=== PATIENT | female | born 1995 | race Caucasian/White ===

== ENCOUNTER 2016-12-08 01:43 | Observation (INO) | payer BC, OTHER ==
[~2016-12-08] VITALS: Ht 160 cm; Wt 91.0 kg
[~2016-12-08 01:43] MED LIST: OXYC1SOL5 PO; PRENCAP6 PO
[2016-12-08 01:45] VITALS: BP 138/79; PULSE 118; RESP 16; TEMP 98; O2SAT 100
[2016-12-08 02:25] LABS: AUTOMATED NEUTROPHIL # 16.9 TH/MM3 (1.8-7.7); BASOPHIL # 0.1 TH/MM3 (0-0.2); BASOPHIL % 0.3 % (0.0-2.0); EOSINOPHIL # 0.1 TH/MM3 (0-0.4); EOSINOPHIL % 0.4 % (0.0-4.0); HEMATOCRIT 37.7 % (35.0-46.0); HEMO FLAGS DIFF FINAL; LYMPH % 8.8 % (9.0-44.0); LYMPHOCYTE # 1.7 TH/MM3 (1.0-4.8); MEAN CORPUSCULAR HEMOGLOBIN 26.6 PG (27.0-34.0); MEAN CORPUSCULAR HGB CONC 33.2 % (32.0-36.0); NEUT % 85.5 % (16.0-70.0); PLATELET COUNT 347 TH/MM3 (150-450); RED BLOOD COUNT 4.71 MIL/MM3 (4.00-5.30); RED CELL DISTRIBUTION WIDTH 15.4 % (11.6-17.2); WHITE BLOOD COUNT 19.8 TH/MM3 (4.0-11.0)
[2016-12-08 02:26] LABS: BACTERIA, URINE RARE /hpf; BLOOD, URINE NEG (NEG); COMMENT (UR) CULTURE INDICATED; CULTURE IF INDICATED CULTURE INDICATED; GLUCOSE,URINE NEG (NEG); KETONE, URINE 40 mg/dL (NEG); NITRITE,URINE NEG (NEG); PH, URINE 5.5 (5.0-8.5); SQUAMOUS EPITHELIAL CELL URINE 1 /hpf (0-5); URINE COLOR YELLOW (YELLW/STRAW)
[2016-12-08] MEDS ORDERED: SODIUM CHLOR 0.9% 1000 ML INJ 1,000 ML IV SCH ×2 (02:45→07:23)
[2016-12-08] MEDS ORDERED: ONDANSETRON HCL 4 MG/2 ML VIAL IV PUSH ONE ×2 (02:45→07:57)
[2016-12-08 03:18] LABS: BICARBONATE 22.5 MEQ/L (21.0-32.0)
[2016-12-08 03:49] LABS: TOTAL BILIRUBIN ADULT 0.5 MG/DL (0.2-1.0)
[2016-12-08 04:20] LABS: INDIRECT BILIRUBIN 0.4 MG/DL (0.0-0.8)
--- NOTE | 2016-12-08 04:25 | PD ---
HPI Chief Complaint: GI Complaint Time Seen by Provider: 02:01 Travel History International Travel<30 days: No Contact w/Intl Traveler<30days: No Traveled to known affect area: No History of Present Illness HPI 21-year-old female arrives with right abdomen pain. It started about 12 hours ago. It started gradually. She has been unable to sleep because of the pain. Pain is worse with movement. The patient's last menstruation was about one month ago and she reports a positive jaab-abo-ojfdagr ear test. The patient is 2 para 1. She has nausea however denies vomiting and diarrhea. She's had decreased appetite. She's never had similar prior pain. She's had no abnormal vaginal bleeding or discharge. She reports past medical history of pseudotumor cerebri. She has no past surgical history. She takes no medications. She has no allergy. Previous lawn care specialist was Dr. Taylor. [facility] Past Medical History ADHD: No Cancer: No Cardiovascular Problems: No Developmental Delay: No Diabetes: No Diminished Hearing: No Neurologic: Yes (EXTRA FLUID ON BRAIN) Psychiatric: No Immunizations Current: Yes Migraines: No Seizures: No Thyroid Disease: No Ulcer: No Tetanus Vaccination: < 5 Years Influenza Vaccination: No ?: Unknown LMP: 3--17 Past Surgical History Surgical History: No Previous Surgery Other Surgery: No Social History Alcohol Use: No Tobacco Use: No Substance Use: No Allergies-Medications (Allergen,Severity, Reaction): Coded Allergies: No Known Allergies (Unverified , 12/08/16) Reported Meds & Prescriptions Reported Meds & Active Scripts Active No Active Prescriptions or Reported Medications Review of Systems Except as stated in HPI: all other systems reviewed are Neg General / Constitutional: No: Fever Physical Exam Narrative GENERAL: 21-year-old female well-nourished well-developed SKIN: Focused skin assessment warm/dry. HEAD: Atraumatic. Normocephalic. EYES: Pupils equal and round. No scleral icterus. No injection or drainage. ENT: No nasal bleeding or discharge. Mucous membranes pink and moist. NECK: Trachea midline. No JVD. CARDIOVASCULAR: Regular rate and rhythm. No murmur appreciated. RESPIRATORY: No accessory muscle use. Clear to auscultation. Breath sounds equal bilaterally. GASTROINTESTINAL: There is tenderness at McBurney's point. There is pain with 90 flexion at the hip on the right side. Abdomen is soft. There is no left- sided tenderness. MUSCULOSKELETAL: No obvious deformities. No clubbing. No cyanosis. No edema. NEUROLOGICAL: Awake and alert. No obvious cranial nerve deficits. Motor grossly within normal limits. Normal speech. PSYCHIATRIC: Appropriate mood and affect; insight and judgment normal. Data Data Last Documented VS Vital Signs Date Time Temp Pulse Resp B/P Pulse Ox O2 Delivery O2 Flow Rate FiO2 12/08/16 01:45 98.0 118 16 138/79 100 Vital signs reviewed Orders Urinalysis - C+S If Indicated (12/08/16 02:00) Complete Blood Count With Diff (12/08/16 02:10) Basic Metabolic Panel (Bmp) (12/08/16 02:10) Beta Hcg (Quant/Titer) (12/08/16 02:10) Type And Screen (12/08/16 02:10) Ed Urine Pregnancytest Poc (12/08/16 02:14) Urine Culture (12/08/16 02:00) Mri Abdomen W/O Contrast (12/08/16 ) Hepatic Functional Panel (12/08/16 02:39) Lipase (12/08/16 02:39) Sodium Chlor 0.9% 1000 Ml Inj (Ns 1000 M (12/08/16 02:45) Ondansetron Inj (Zofran Inj) (12/08/16 02:45) Piperacil-Tazo 3.375 Gm Premix (Zosyn 3. (12/08/16 05:15) Admit Order (Ed Use Only) (12/08/16 05:10) NPO (12/08/16 05:12) Labs Laboratory Tests Test 12/08/16 12/08/16 02:00 02:10 Urine Color YELLOW Urine Turbidity CLEAR Urine pH 5.5 Urine Specific [place] 1.019 Urine Protein NEG mg/dL Urine Glucose (UA) NEG mg/dL Urine Ketones 40 mg/dL Urine Occult Blood NEG Urine Nitrite NEG Urine Bilirubin NEG Urine Urobilinogen LESS THAN 2.0 MG/DL Urine Leukocyte Esterase LARGE Urine RBC 1 /hpf Urine WBC 15 /hpf Urine Squamous Epithelial 1 /hpf Cells Urine Bacteria RARE /hpf Microscopic Urinalysis Comment CULTURE INDICATED White Blood Count 19.8 TH/MM3 Red Blood Count 4.71 MIL/MM3 Hemoglobin 12.5 GM/DL Hematocrit 37.7 % Mean Corpuscular Volume 80.0 FL Mean Corpuscular Hemoglobin 26.6 PG Mean Corpuscular Hemoglobin 33.2 % Concent Red Cell Distribution Width 15.4 % Platelet Count 347 TH/MM3 Mean Platelet Volume 9.2 FL Neutrophils (%) (Auto) 85.5 % Lymphocytes (%) (Auto) 8.8 % Monocytes (%) (Auto) 5.0 % Eosinophils (%) (Auto) 0.4 % Basophils (%) (Auto) 0.3 % Neutrophils # (Auto) 16.9 TH/MM3 Lymphocytes # (Auto) 1.7 TH/MM3 Monocytes # (Auto) 1.0 TH/MM3 Eosinophils # (Auto) 0.1 TH/MM3 Basophils # (Auto) 0.1 TH/MM3 CBC Comment DIFF FINAL Differential Comment Sodium Level 137 MEQ/L Potassium Level 4.0 MEQ/L Chloride Level 107 MEQ/L Carbon Dioxide Level 22.5 MEQ/L Anion Gap 8 MEQ/L Blood Urea Nitrogen 7 MG/DL Creatinine 0.63 MG/DL Estimat Glomerular Filtration 119 ML/MIN Rate Random Glucose 108 MG/DL Calcium Level 8.5 MG/DL Total Bilirubin 0.5 MG/DL Direct Bilirubin 0.1 MG/DL Indirect Bilirubin 0.4 MG/DL Aspartate Amino Transf 31 U/L (AST/SGOT) Alanine Aminotransferase 14 U/L (ALT/SGPT) Alkaline Phosphatase 50 U/L Total Protein 7.9 GM/DL Albumin 4.0 GM/DL Lipase 108 U/L Human Chorionic Gonadotropin, 317 MIU/ML Quant Blood Type A POSITIVE Antibody Screen NEGATIVE MDM Medical Decision Making Medical Screen Exam Complete: Yes Emergency Medical Condition: Yes Medical Record Reviewed: Yes Differential Diagnosis Constipation, Gastritis, Acute Cholecystitis, Biliary Colic, Pancreatitis, SOTELO , Hepatitis, Bowel Obstruction, Cystitis, Mesenteric Ischemia, AAA, Appendicitis , Renal Stone/Hydronephrosis, GERD, perforated viscous Narrative Course CBC & BMP Diagram 12/08/16 02:10 LFTs normal Lipase normal Beta hCG 317 Urinalysis shows pyuria Last 24 hours Impressions Abdomen MRI 12/08/16 0000 Signed Impressions: Service Date/Time: Thursday, December 08, 2016 04:15 - CONCLUSION: Dilated fluid-filled appendix measuring 9 mm in diameter. Although no definite periappendiceal inflammation is appreciated the findings are suspicious for acute appendicitis in the appropriate clinical setting. There is trace simple free fluid in the pelvis. Stevan Vega MD Case discussed with Dr. Sandoval of obstetrics. is so early it is unlikely to have caused any anatomical change as of yet. Case discussed with Dr. Vega radiology who states the is likely too early to identify location. Case discussed with Dr. Fadumo Qureshi of Gen. surgery at approximately 505AM. Abdomen soft with tenderness to palpation at McBurney's point. No sign of peritonitis. Vital signs normal. Patient notified of findings and plan. Diagnosis Primary Impression: Appendicitis Qualified Code: K35.89 - Other acute appendicitis Additional Impression: Qualified Code: Z3A.01 - Less than 8 weeks gestation of Admitting Information Admitting Physician Requests: Admit Scripts No Active Prescriptions or Reported Meds Royce Hughes MD Dec 08, 2016 04:25
--- NOTE | 2016-12-08 05:00 | RADRPT ---
EXAM DATE/TIME: 12/08/2016 04:15 [facility] COMPARISON: No previous studies available for comparison. INDICATIONS : Appendicitis. MEDICAL HISTORY : None. SURGICAL HISTORY : None. ENCOUNTER: Initial ACUITY: 2 day PAIN SCORE: 4/10 LOCATION: Right flank TECHNIQUE: Multiplanar, multisequence magnetic resonance imaging of the abdomen was performed without contrast. FINDINGS: Images document a dilated fluid-filled appendix with diameter of 9 mm. No definite periappendiceal in flammation is identified. There is trace simple free fluid in the posterior cul-de-sac within the pel vis. There is a 2 cm corpus luteal cyst in the right ovary. No gestational sac is appreciated within the ovary. The visualized surrounding structures demonstrate no acute finding. CONCLUSION: Dilated fluid-filled appendix measuring 9 mm in diameter. Although no definite periappendiceal inflam mation is appreciated the findings are suspicious for acute appendicitis in the appropriate clinical setting. There is trace simple free fluid in the pelvis. Stevan Vega MD on December 08, 2016 at 4:56 Board Certified Radiologist. This report was verified electronically.
[2016-12-08] MEDS ORDERED: PIPERACIL-TAZO 3.375 GM PREMIX 50 ML IV ONE (05:15)
[2016-12-08] MEDS ORDERED: BUPIVACAINE/EPINEPHRINE 0.5% PF 30 ML VIAL ONE (05:25)
[2016-12-08] MEDS ORDERED: fentaNYL CITRATE 250 MCG/5 ML AMP ONE (06:01)
[2016-12-08] MEDS ORDERED: SUGAMMADEX SODIUM 200 MG/2 ML VIAL IV PUSH ONE ×2 (06:56)
--- NOTE | 2016-12-08 07:27 | HHI.PR ---
Immediate Post Op Note Procedure Date: Dec 08, 2016 Pre Op Diagnosis: (1) Appendicitis (2) Post Op Diagnosis: (1) (2) Appendicitis Surgeon: Arthur Qureshi Supervisor Phosphoric Acid(s): rodolfo regalado Procedure: lap appy Findings: acute appendicitis Complications: none Specimen(s) removed: appendix Estimated blood loss: none Anesthesia: General IVF Patient to: PACU Patient Condition: Good Arthur Qureshi MD Dec 08, 2016 07:27
[2016-12-08] MEDS ORDERED: KETOROLAC TROMETHAMINE 30 MG/ML (IVP) VIAL IVP PRN (07:30)
[2016-12-08] MEDS ORDERED: ACETAMINOPHEN/HYDROcodone 325 MG/5 MG TAB PO PRN ×2 (07:30)
[2016-12-08] MEDS ORDERED: SODIUM CHLORIDE 0.9% FLUSH 5 ML FLUSH IVF PRN (07:30)
[2016-12-08] MEDS ORDERED: MORPHINE SULFATE 8 MG/ML INJ IV PUSH PRN (07:30)
[2016-12-08] MEDS ORDERED: MORPHINE SULFATE 4 MG/ML INJ IV PUSH PRN (07:30)
[2016-12-08] MEDS ORDERED: Post-op Orders (for Pharmacy) MISC XX ONE (07:30)
[2016-12-08] MEDS ORDERED: ONDANSETRON HCL 4 MG/2 ML VIAL IV PRN (07:30)
[2016-12-08] MEDS ORDERED: diphenhydrAMINE HCL 25 MG CAP PO PRN (07:30)
[2016-12-08] MEDS ORDERED: NALOXONE HCL 0.4 MG/ML AMP IV PRN (07:30)
[2016-12-08] MEDS ORDERED: NORC5TAB PO (07:51)
[2016-12-08] MEDS ORDERED: LACTATED RINGER'S 1000 ML INJ 1,000 ML IV ONE (07:57)
[2016-12-08] MEDS ORDERED: KETOROLAC TROMETHAMINE 60 MG/2 ML (IM) VIAL IM ONE (07:57)
[2016-12-08] MEDS ORDERED: PROPOFOL 200 MG/20 ML AMP IV ONE (07:57)
--- NOTE | 2016-12-08 07:58 | MH ---
cc: CARMENZA OTT DATE OF ADMISSION: 12/08/2016 CHIEF COMPLAINT Acute appendicitis. HISTORY OF PRESENT ILLNESS Ms. Davis is a very pleasant 21-year-old female who presented to the emergency department with a 12-hour history of right lower quadrant abdominal pain. She states she developed a gradual onset of pain around 4 o'clock yesterday afternoon. It was in the mid abdominal area and then moved to the right lower quadrant. She was unable to sleep secondary to the pain and had her bring her to the emergency department. She states the pain is made worse by moving around. She denies any nausea or vomiting. She states she just took a test yesterday and she believes she is about four weeks . This is her second child as she already has a 2 year-old with her at home. The patient had some nausea but no emesis. She had no fever. She reports no diarrhea or loose bowel movements. She states she does have some loss of appetite. PAST MEDICAL HISTORY: Pseudotumor cerebri. PAST SURGICAL HISTORY: None, according to the patient. MEDICATIONS: None. ALLERGIES: None known. SOCIAL HISTORY: She does not smoke or drink. 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 REVIEW OF SYSTEMS: Please see HPI. PHYSICAL EXAMINATION: Temperature is 98, pulse is 110, blood pressure is 130/70, respiratory rate 20. GENERAL: A pleasant, young, healthy appearing white female, accompanied by her in the emergency department. HEENT: Pupils equal light, round and reactive to light. Sclerae are white. Oropharynx is clear and moist. Neck is supple. No masses. Lungs: Clear to auscultation bilaterally. Heart: S1-S2 no murmur. Abdomen: Soft, obese, tender in the right lower quadrant with some voluntary guarding and rebound. No abdominal masses. No abdominal hernias. Bowel sounds are present. Extremities: Free range of motion x4. Neurologically: Alert and orient x3. LABORATORY DATA White blood cell count is 19.8, hemoglobin 12, platelet count is 347. Electrolytes are all within normal limits. Beta hCG is 317. MRI the abdomen demonstrates a dilated fluid filled appendix in the right lower quadrant consistent with appendicitis IMPRESSION Acute appendicitis. PLAN Risks and benefits of operative intervention were discussed with the patient. We specifically discussed the risks of the surgical procedure with a 4-week intrauterine . Both her and her had a clear understanding of this. I called the operating room and requested immediate time and they obliged. The patient will be taken to the operating room right now for laparoscopic, possible open appendectomy. MD REINA Landa/MARVA /7:20 AM /7:32 AM
--- NOTE | 2016-12-08 07:58 | MP ---
cc: CARMENZA OTT PREOPERATIVE DIAGNOSIS: Acute appendicitis POSTOPERATIVE DIAGNOSIS: Acute appendicitis PROCEDURE PERFORMED: Laparoscopic appendectomy SURGEON: Carmenza Ott MD. ANESTHESIA: General endotracheal anesthesia COMPLICATIONS: None. INDICATIONS FOR PROCEDURE: Ms. Davis is a very pleasant 21-year-old female presented to the emergency department early this morning with a 12-hour history of right lower quadrant abdominal pain. By history, physical exam and MRI, she has acute appendicitis. Risks and benefits of laparoscopic possible open appendectomy was discussed with her and her including the fact that she is 4 weeks and they were agreeable to proceed. DETAILS The patient was identified, brought to the operating room, placed supine on the operating room table. After adequate general anesthesia was achieved the abdomen was prepped and draped in standard surgical fashion. Infraumbilical region was anesthetized with 0.25% Marcaine. Infraumbilical incision was made. Dissection was carried down to the subcutaneous tissue in the midline fascia. Midline fascia was then incised sharply. A finger was then placed in the peritoneal cavity without difficulty. Blunt balloon trocar was inserted and the abdomen was insufflated to 15 mmHg using CO2 gas. Next two 5 mm trocars were placed in the lower midline under direct vision. Immediately we identified a dilated and inflamed appendix with a small amount of turbid fluid in the pelvis. Turbid fluid was evacuated out with the suction irrigation device. Appendix was intact and there was no evidence of perforation. Appendix was then grasped. Appendiceal mesentery was taken down with the harmonic scalpel to the level of the cecal base. Once the cecal base was achieved two 2-0 Vicryl Endoloops were placed proximally on the appendix and one distally. The appendix was then transected with the harmonic scalpel. Appendix was then placed into an Endopouch bag and brought out through the infraumbilical port. Appendix was inspected and found to be markedly dilated without evidence of perforation. Appendix was sent to pathology for analysis. Next the abdominal cavity was rinsed out with 1 liter of warm saline solution. All turbid fluid of the pelvis was evacuated as it was very minimal. The uterus appeared gravid with no abnormalities. Appendiceal stump was copiously irrigated. There is no evidence of a leak. One of the Endoloops appeared to be close transection appendix and I elected to place a 2-0 PDS Endoloop proximal to it. The appendiceal stump was grasped and the 2-0 PDS Endoloop was placed proximal to the previously placed Vicryl Endoloops right on the cecal base. There is no evidence of leakage of stool from the appendiceal stump. Again appendiceal stump was copiously irrigated and there is no evidence of leakage or compromise. Endoloops were all checked and found to be secure. A brief view of the abdominal cavity revealed no other abnormalities. Liver and gallbladder were visualized and photographed. All irrigant was removed from the abdominal cavity. The cecum was returned to its anatomic position and then covered over with omentum. All ports were removed under direct vision. Midline fascia was repaired with 0 Vicryl in a [id number] fashion. Skin was closed with 4-0 Vicryl. The patient tolerated the procedure well, was awakened and brought to recovery in stable condition. MD REINA Landa/MARVA /7:20 AM /7:50 AM .2
[2016-12-08 08:37] VITALS: BP 129/69; PULSE 90; RESP 16; TEMP 98.3; O2SAT 99
[2016-12-08] MEDS ORDERED: SODIUM CHLORIDE 0.9% FLUSH 5 ML FLUSH IVF SCH (09:00)
== END 2016-12-08 08:57 | disposition home or self-care (01) ==
LOC: NEPC 01:43 → NEDA 05:12 → INTOOBSV 05:12 → HPAC 06:07 → UNDODEPER 12-09 20:36
PROVIDERS: ADMIT Surgery Trauma Surgery; ATTEND Surgery Trauma Surgery
DX: K35.80 Unspecified acute appendicitis (principal); Z3A.01 Less than 8 weeks gestation of pregnancy; Z33.1 Pregnant state, incidental; R10.2 Pelvic and perineal pain
CPT/HCPCS: 00840; 44970; 74181; 80048; 80076; 81001; 83690; 84702; 84703; 85025; 86850; 86900; 86901; 87086; 88304; 96374; 99285; G0378; J1885; J2405; J2543; J3010; J7030; J7120

== ENCOUNTER 2017-07-30 17:53 | Emergency (ER) | payer OTHER ==
[~2017-07-30 17:53] MED LIST changes: +NORC5TAB PO; -OXYC1SOL5 PO; -PRENCAP6 PO
[2017-07-30 19:18] VITALS: BP 125/76; PULSE 107
[2017-07-30 19:22] VITALS: RESP 18
[2017-07-30 19:30] VITALS: TEMP 97.8
--- NOTE | 2017-07-30 19:52 | PD ---
HPI Chief Complaint bloody show, ctx Date Seen: Jul 30, 2017 Time Seen: 19:48 Travel History International Travel<30 Days: No Contact w/Intl Traveler<30Days: No Known Affected Area: No History of Present Illness HPI Pt is a 22y/o @ 37.4wks. She has PNC with Dr. Irwin. She presented to triage this evening reporting bloody show and ctx. She denies LOF. +FM. She was checked in clinic yesterday and was 3cm. No complications this . Weeks Gestation: 37 Para: 1 : 2 Last Menstrual Period: Jul 30, 2017 History Past Medical History Medical History: Denies Significant Hx Obstetric History Obstetric History x1 Past Surgical History Narrative Surgical appendectomy Family History Family History: Negative Social History Alcohol Use: No Tobacco Use: No Substance Abuse: No Allergies-Medications (Allergen,Severity, Reaction): Coded Allergies: No Known Allergies (Unverified , 12/08/16) Home Meds Reported Medications Hydrocodone-Acetaminophen ([place]) 5-325 mg Tab, 1-2 TAB PO q4hr prn Y for PAIN, TAB 0 Refills 12/08/16 Review of Systems Except as stated in HPI: all other systems reviewed are Neg Physical Exam Vital Signs Date Time Temp Pulse Resp B/P (MAP) Pulse Ox O2 Delivery O2 Flow Rate FiO2 07/30/17 19:22 18 07/30/17 19:18 107 125/76 (92) Narrative General: well developed, well nourished, no acute distress HEENT: normocephalic atraumatic, extraocular movements intact, neck supple Abdomen: soft, gravid, nontender, nondistended Uterus: fundus term Extremities: full range of motion, no pedal edema, no calf tenderness Skin: normal coloration, no rashes, no suspicious skin lesions noted Neurologic: cranial nerves 2-12 grossly intact, normal muscle tone, normal gait Psychiatric: normal mood and affect, appropriate FHTs: 135, +accels, no decels, moderate variability, reactive [place]: irregular ctx Cvx: 4-5/70/-1 Data Data Vital Signs Reviewed: Yes Orders Orders Vital Signs (Adult) .ON ADMISSION (07/30/17 19:05) ^ Labor Status (07/30/17 19:05) ^ Non Stress Test (07/30/17 19:05) MDM Plan 22y/o @ 37.4wks with possible labor. -- cvx slightly more than exam yesterday but minimal ctx -- ambulate and recheck in 1hr -- FHTs cat 1 Diagnosis Diagnosis: Primary Impression: 37 weeks gestation of Additional Impression: Uterine contractions during Negrito Erwin MD Jul 30, 2017 19:52
[2017-07-30 20:00] VITALS: RESP 18
[2017-07-30 20:30] VITALS: RESP 18
== END 2017-07-30 21:00 | disposition home or self-care (01) ==
LOC: HOBED 17:53
DX: O26.93 Pregnancy related conditions, unspecified, third trimester (principal); Z3A.37 37 weeks gestation of pregnancy
CPT/HCPCS: 59025

== ENCOUNTER 2017-08-02 08:46 | Inpatient (IN) | payer OTHER ==
[~2017-08-02] VITALS: Ht 160 cm; Wt 104.3 kg
[2017-08-02] VITALS (9 sets, daily range): BP systolic 120–139; BP diastolic 67–75; PULSE 81–100; RESP 18; TEMP 98.4–98.5
[2017-08-02] MEDS ORDERED: LACTATED RINGER'S 1000 ML INJ 1,000 ML IV SCH (09:18)
[2017-08-02] MEDS ORDERED: LACTATED RINGER'S 1000 ML INJ 1,000 ML IV PRN (09:18)
--- NOTE | 2017-08-02 09:28 | PD ---
HPI Chief Complaint LOF and ctx Date Seen: Aug 02, 2017 Time Seen: 09:20 Travel History International Travel<30 Days: No Contact w/Intl Traveler<30Days: No Known Affected Area: No History of Present Illness HPI Pt is a pleasant 22y/o @ 38.0wks. She has PNC with CARLY. She presents today reporting LOF at 7:15am (clear fluid). Ctx started thereafter. At last visit to triage she was 4cm dilated. She has no complications this . Weeks Gestation: 38 Para: 1 : 2 Last Menstrual Period: Aug 02, 2017 History Past Medical History Medical History: Denies Significant Hx Obstetric History Obstetric History x 1 (2.5yrs ago) Past Surgical History Narrative Surgical appendectomy this past spring Family History Family History: Negative Social History Alcohol Use: No Tobacco Use: No Substance Abuse: No Allergies-Medications (Allergen,Severity, Reaction): Coded Allergies: No Known Allergies (Unverified , 12/08/16) Home Meds Discontinued Reported Medications Hydrocodone-Acetaminophen ([place]) 5-325 mg Tab, 1-2 TAB PO q4hr prn Y for PAIN, TAB 0 Refills 12/08/16 Review of Systems Except as stated in HPI: all other systems reviewed are Neg Physical Exam Narrative General: well developed, well nourished, no acute distress HEENT: normocephalic atraumatic, extraocular movements intact, neck supple Abdomen: soft, gravid, nontender, nondistended Uterus: fundus term Extremities: full range of motion, no pedal edema Skin: normal coloration, no rashes, no suspicious skin lesions noted Neurologic: cranial nerves 2-12 grossly intact, normal muscle tone, normal gait Psychiatric: normal mood and affect, appropriate FHTs: 130s, +accels, no decels, moderate variability, reactive [place]: ctx q2-3m Cvx: 6-7/90/0 Data Data Vital Signs Reviewed: Yes Orders Orders Vital Signs (Adult) .ON ADMISSION (08/02/17 09:18) ^ Labor Status (08/02/17 09:18) ^ Non Stress Test (08/02/17 09:18) Pamg-1 Test .ONCE (08/02/17 09:18) Admit To Inpatient (08/02/17 ) Vital Signs (Adult) .Per protocol (08/02/17 09:18) Heart (08/02/17 09:18) Amnioinfusion (08/02/17 09:18) Urinary Catheter Management .ONCE (08/02/17 09:18) Diet Liquid (08/02/17 Breakfast) Lactated Ringer's 1000 Ml Inj (Lr 1000 M (08/02/17 09:18) Lactated Ringer's 1000 Ml Inj (Lr 1000 M (08/02/17 09:18) Sodium Chlorid 0.9% 500 Ml Inj (Ns 500 M (08/02/17 09:30) Sodium Chlor 0.9% 1000 Ml Inj (Ns 1000 M (08/02/17 09:38) Lidocaine 1% Inj (50 Ml) (Xylocaine 1% I (08/02/17 09:30) Citric Acid-Sodium Citrate Liq (Bicitra (08/02/17 09:30) Ondansetron Inj (Zofran Inj) (08/02/17 09:30) Fentanyl Inj (Fentanyl Inj) (08/02/17 09:30) Fentanyl Inj (Fentanyl Inj) (08/02/17 09:30) Complete Blood Count With Diff (08/02/17 09:18) Hold Clot (08/02/17 09:18) Abo/Rh Blood Type (08/02/17 09:18) Urinalysis - C+S If Indicated (08/02/17 09:18) Drug Screen, Random Urine (08/02/17 09:18) Resp Oxygen Non Rebreathe Mask (08/02/17 ) ^ Epidural / Intrathecal Infus (08/02/17 09:18) Oxytocin 30 Units-500ml Premix (Pitocin (08/02/17 09:30) Lidocaine 1% Inj (50 Ml) (Xylocaine 1% I (08/02/17 09:30) Light Mineral Oil (Muri-Lube Oil) (08/02/17 09:30) Inpatient Certification (08/02/17 ) Ob (2e) Additional Admit Info (08/02/17 09:19) Group B Strep: Negative MDM Plan 22y/o @ 38.0wks with PROM and now labor. -- amnisure + -- cvx 6-7cm -- cat 1 FHTs -- admit to L&D, CLD, epidural/adan PRN Dr. Montelongo (partition setter) notified of pt status and agreed with POC. Courtesy orders placed. He will assume care of the pt. Diagnosis Diagnosis: Primary Impression: 38 weeks gestation of Additional Impression: PROM with onset of labor within 24 hours of rupture Negrito Erwin MD Aug 02, 2017 09:28
[2017-08-02] MEDS ORDERED: OXYTOCIN 30 UNITS-500ML PREMIX 500 ML IV ONE (09:30)
[2017-08-02] MEDS ORDERED: CITRIC ACID-SODIUM CITRATE LIQ 30 ML UDC PO SCH (09:30)
[2017-08-02] MEDS ORDERED: MINERAL OIL 10 ML VIAL TOPICAL PRN (09:30)
[2017-08-02] MEDS ORDERED: LIDOCAINE HCL 1% 50 ML VIAL I-DERMAL PRN (09:30)
[2017-08-02] MEDS ORDERED: SODIUM CHLORID 0.9% 500 ML INJ 500 ML IV PRN (09:30)
[2017-08-02] MEDS ORDERED: ONDANSETRON HCL 4 MG/2 ML VIAL IV PUSH PRN (09:30)
[2017-08-02] MEDS ORDERED: LIDOCAINE HCL 1% 50 ML VIAL INFIL PRN (09:30)
[2017-08-02] MEDS ORDERED: SODIUM CHLOR 0.9% 1000 ML INJ 1,000 ML IV PRN (09:38)
[2017-08-02] MEDS ORDERED: fentaNYL 2MCG-BUPIV 0.125% INJ 100 ML ONE (10:06)
[2017-08-02 10:18] LABS: BASOPHIL % 0.2 % (0.0-2.0); EOSINOPHIL % 0.3 % (0.0-4.0); HEMATOCRIT 34.5 % (35.0-46.0); HEMO FLAGS DIFF FINAL; LYMPH % 17.1 % (9.0-44.0); MEAN CELL VOLUME 78.5 FL (80.0-100.0); MEAN CORPUSCULAR HEMOGLOBIN 25.8 PG (27.0-34.0); MEAN CORPUSCULAR HGB CONC 32.9 % (32.0-36.0); MONO % 4.6 % (0.0-8.0); NEUT % 77.8 % (16.0-70.0); PLATELET COUNT 284 TH/MM3 (150-450); RED CELL DISTRIBUTION WIDTH 15.6 % (11.6-17.2); WHITE BLOOD COUNT 11.6 TH/MM3 (4.0-11.0)
[2017-08-02 10:56] LABS: BACTERIA, URINE RARE /hpf; BLOOD, URINE SMALL (NEG); COMMENT (UR) CULTURE INDICATED; CULTURE IF INDICATED CULTURE INDICATED; GLUCOSE,URINE NEG (NEG); KETONE, URINE NEG (NEG); MUCUS URINE FEW /lpf (OCC); NITRITE,URINE NEG (NEG); SQUAMOUS EPITHELIAL CELL URINE 1 /hpf (0-5); TRANSITIONAL EPI CELLS, URINE <1 /hpf; URINE COLOR YELLOW (YELLW/STRAW)
--- NOTE | 2017-08-02 12:08 | PD.OB.DELI ---
Weeks gestation: 38 Gest age assessed date: Aug 02, 2017 Gest age assessed time: 09:00 Pt started active labor?: Yes Medical induction of labor?: No Artificial rupture of membrane: No Anesthesia: Epidural Episiotomy: None Vaginal Delivery: Normal Presentation: Occiput anterior Nuchal Cord: x1 Delayed cord clamping (45 sec): Yes Shoulder Dystocia: Judith maneuver done Infant: Female Delivery date: Aug 02, 2017 Delivery time: 11:45 One Minute : 8 Five Minute : 9 Placenta: Spontaneous delivery Laceration: No lacerations Estimated blood loss: 200cc Armando Candelario MD Aug 02, 2017 12:08
[2017-08-02] MEDS ORDERED: ALUMINUM/MAGNESIUM/SIMETH 30 ML CUP PO PRN (12:15)
[2017-08-02] MEDS ORDERED: DOCUSATE SODIUM 50 MG/SENNA 8.6 MG TAB PO PRN (12:15)
[2017-08-02] MEDS ORDERED: OXYTOCIN 10 UNIT/ML AMP XX PRN (12:15)
[2017-08-02] MEDS ORDERED: OXYTOCIN 30 UNITS-500ML PREMIX 500 ML IV SCH (12:15)
[2017-08-02] MEDS ORDERED: ONDANSETRON ODT 4 MG TAB PO PRN (12:15)
[2017-08-02] MEDS ORDERED: SODIUM CHLORIDE 0.9% FLUSH 10 ML FLUSH IV FLUSH SCH (12:15)
[2017-08-02] MEDS ORDERED: ACETAMINOPHEN 325 MG TAB PO PRN (12:15)
[2017-08-02] MEDS ORDERED: SODIUM CHLORIDE 0.9% FLUSH 10 ML FLUSH IV FLUSH PRN (12:15)
[2017-08-02] MEDS ORDERED: WITCH HAZEL 50%/GLYCERIN 12.5% 40 PAD JAR TOPICAL PRN (12:15)
[2017-08-02] MEDS ORDERED: BENZOCAINE 20% TOPICAL SPRAY 60 ML CAN TOPICAL PRN (12:15)
[2017-08-02] MEDS ORDERED: DO NOT ADMINISTER ANTICOAGULANTS PRN (14:30)
[2017-08-02] MEDS ORDERED: fentaNYL 2MCG-BUPIV 0.125% 100 ML EPIDURAL SCH (14:30)
[2017-08-02] MEDS ORDERED: NO SYSTEM NARCOTICS PRN (14:30)
[2017-08-02] MEDS ORDERED: ePHEDrine/NS 25 MG/5 ML SYR IV PUSH PRN (14:30)
[2017-08-02] MEDS ORDERED: MEASLES, MUMPS, RUBELLA VACCINE 0.5 ML VIAL SQ ONE (16:00)
[2017-08-02] MEDS ORDERED: DIPHTH/TETANUS/ACEL PERTUSSIS (BOOSTER) 0.5 ML VIAL/PFS IM ONE (16:00)
[2017-08-02] MEDS ORDERED: ZOLPIDEM TARTRATE 5 MG TAB PO PRN (21:00)
[2017-08-02] MEDS: IBUPROFEN 800 MG TAB PO PRN (22:00)
[2017-08-03] MEDS: IBUPROFEN 800 MG TAB PO PRN (06:16)
[2017-08-03 07:53] VITALS: BP 126/80; PULSE 80; RESP 18; TEMP 97.8
--- NOTE | 2017-08-03 09:32 | HHI.OB ---
Subjective Post Day: 1 Remarks Delivered second child at noon yesterday with no tears nursing well no complaints unsure if would like to be discharged after noon today or wait until tomorrow Objective Vitals/I&O Vital Signs Date Time Temp Pulse Resp B/P (MAP) Pulse Ox O2 Delivery O2 Flow Rate FiO2 08/03/17 07:53 97.8 80 18 126/80 (95) 08/02/17 23:00 98.4 88 18 120/67 (84) 08/02/17 14:50 139/75 (96) 08/02/17 14:50 98.5 100 18 08/02/17 09:40 81 Objective Remarks GENERAL: Well-nourished, well-developed patient. CARDIOVASCULAR: Regular rate and rhythm without murmurs, gallops, or rubs. RESPIRATORY: Breath sounds equal bilaterally. No accessory muscle use. ABDOMEN/GI: Abdomen soft, non-tender. Fundus: Firm, non-tender at umbilicus. GENITOURINARY: Light to moderate bleeding. EXTREMITIES: No cyanosis or edema, non-tender, without signs of DVT. Medications and IVs Current Medications Medications (Trade) Dose Ordered Sig/Alee Route Start Time Stop Time Status Last Admin Lactated Ringer's 1,000 ml @ 125 mls/hr Q8H IV 08/02/17 09:18 08/02/17 09:18 Lactated Ringer's 1,000 ml @ 3,000 mls/hr Q20M PRN IV 08/02/17 09:18 Sodium Chloride 500 ml @ 1,000 mls/hr ONCE PRN IV 08/02/17 09:30 Sodium Chloride 1,000 ml @ 100 mls/hr Q10H PRN IV 08/02/17 09:38 (Xylocaine 1% Inj (50 ml)) 0.1 ml UNSCH X1 PRN I-DERMAL 08/02/17 09:30 08/05/17 09:29 (Bicitra Liq) 30 ml EVENT MANAGER PO 08/02/17 09:30 08/06/17 09:29 (Zofran Inj) 4 mg Q6H PRN IV PUSH 08/02/17 09:30 (fentaNYL INJ) 50 mcg Q1H PRN IV PUSH 08/02/17 09:30 (fentaNYL INJ) 100 mcg Q1H PRN IV PUSH 08/02/17 09:30 (Xylocaine 1% Inj (50 ml)) 10 ml UNSCH X1 PRN INFIL 08/02/17 09:30 08/04/17 09:29 (Muri-Lube Oil) 10 ml UNSCH PRN TOPICAL 08/02/17 09:30 (Pitocin Inj) 20 units UNSCH X1 PRN XX 08/02/17 12:15 08/03/17 12:14 (NS Flush) 2 ml BID IV FLUSH 08/02/17 12:15 (NS Flush) 2 ml UNSCH PRN IV FLUSH 08/02/17 12:15 (Tylenol) 650 mg Q4H PRN PO 08/02/17 12:15 (Motrin) 800 mg Q8H PRN PO 08/02/17 12:15 08/03/17 06:16 (Americaine 20% Top Spr) 1 spray Q4H PRN TOPICAL 08/02/17 12:15 (Tucks Pads) 1 applic QID PRN TOPICAL 08/02/17 12:15 (Maliha-Colace) 2 tab Q12H PRN PO 08/02/17 12:15 (Ambien) 5 mg HS PRN PO 08/02/17 21:00 (Mag-Al Plus Susp Liq) 15 ml Q8H PRN PO 08/02/17 12:15 (Zofran Odt) 4 mg Q6H PRN PO 08/02/17 12:15 Miscellaneous Information No systemic narcotics to be given except... UNSCH PRN .XX 08/02/17 14:30 08/03/17 14:29 Miscellaneous Information DO NOT ADMINISTER ANY ANTICOAGUL... UNSCH PRN .XX 08/02/17 14:30 08/03/17 14:29 Fentanyl/ Bupivacaine HCl 100 ml @ 0 mls/hr TITRATE EPIDURAL 08/02/17 14:30 (ePHEDrine/NS 25 MG/5 ML SYR) 10 mg UNSCH PRN IV PUSH 08/02/17 14:30 08/03/17 14:29 Assessment/Plan Assessment and Plan PPD1 with no concerns and doing very well will write for optional discharge after noon and let her decide Jami Cooney MD Aug 03, 2017 09:32
[2017-08-03] MEDS ORDERED: IBUP1TAB7 PO (09:34)
--- NOTE | 2017-08-03 09:35 | HHI.DCPOC ---
Discharge Care Plan Report Symptoms to Your Doctor -Temperature above 100.5 degrees -Redness, of incision or excessive or foul smelling drainage -Unusual pain or calf pain -Increased vaginal bleeding -Painful or difficulty urinating -Feelings of extreme sadness or anxiety after 2 weeks Goals to Promote Your Health * To prevent worsening of your condition and complications * To maintain your health at the optimal level Directions to Meet Your Goals Take your medications as prescribed Follow your dietary instruction Follow activity as directed Ensure plenty of rest for recovery Drink fluids for hydration Keep your appointments as scheduled Take your immunizations and boosters as scheduled If your symptoms worsen call your PCP, if no PCP go to Urgent Care Center or Emergency Room Smoking is Dangerous to Your Health. Avoid second hand smoke Call the 24-hour crisis hotline for domestic abuse at Jami Cooney MD Aug 03, 2017 09:35
== END 2017-08-03 15:27 | disposition home or self-care (01) | DRG 775 ==
LOC: HOBED 08:46 → H2EB 09:31 → H1EA 15:51
PROVIDERS: ADMIT Obstetrics & Gynecology; ATTEND Obstetrics & Gynecology
PROC: 10E0XZZ Delivery of Products of Conception, External Approach (ICD-10-PCS; principal; 2017-08-02)
PROC: 3E0R3BZ Introduction of Anesthetic Agent into Spinal Canal, Percutaneous Approach (ICD-10-PCS; 2017-08-02)
PROC: 00HU33Z Insertion of Infusion Device into Spinal Canal, Percutaneous Approach (ICD-10-PCS; 2017-08-02)
DX: O66.0 Obstructed labor due to shoulder dystocia (principal); O69.81X0 Labor and delivery complicated by cord around neck, without compression, not applicable or unspecified; Z37.0 Single live birth; Z3A.38 38 weeks gestation of pregnancy
CPT/HCPCS: 36415; 59025; 80307; 81001; 84112; 85025; 87086; J2590; J7120